=== PATIENT | female | born 1970 | race Caucasian/White ===

== ENCOUNTER 2016-09-21 18:35 | Emergency (ER) | payer OTHER | END 2016-09-21 18:42 | disposition home or self-care (01) | LOC: CFTX 18:35 | DX: G56.02 Carpal tunnel syndrome, left upper limb (principal); I10 Essential (primary) hypertension; Z90.49 Acquired absence of other specified parts of digestive tract; Z90.710 Acquired absence of both cervix and uterus | CPT/HCPCS: 29125; 99283 ==